=== PATIENT | female | born 1945 | race Caucasian/White ===

== ENCOUNTER 2025-01-24 08:43 | Emergency (ER) | payer MEDICARE, OTHER ==
[~2025-01-24] VITALS: Ht 157.5 cm; Wt 76.5 kg
[2025-01-24 09:43] LABS: HEMATOCRIT 37.6 % (34.1-44.9); HEMOGLOBIN 13.4 g/dL (11.2-15.7); MCH 33.3 PG (25.6-32.2); MCHC 35.6 g/dL (32.2-35.5); MCV 93.3 fL (79.4-94.8); PLATELET COUNT 201 K/uL (182-369); RBC 4.03 M/uL (3.93-5.22)
[2025-01-24] MEDS ORDERED: SODIUM CHLORIDE 0.9% 500 ML IV ONE (09:45)
[2025-01-24 09:57] LABS: ALBUMIN 2.8 g/dL (3.4-5.0); ALBUMIN/GLOBULIN RATIO 0.7 (1.1-2.4); ANION GAP 12.1 (7-21); BILIRUBIN, TOTAL 0.5 mg/dL (0.2-1.0); BUN/CREATININE RATIO 10.52 (6.0-28.6); CALCIUM 8.9 mg/dL (8.5-10.1); CREATININE, SERUM 0.76 mg/dL (0.55-1.02); MAGNESIUM 1.8 mg/dL (1.8-2.4); POTASSIUM 3.1 mmol/L (3.5-5.1); PROTEIN, TOTAL 6.8 g/dL (6.4-8.2)
[2025-01-24] MEDS ORDERED: SODIUM CHLORIDE 0.9% 1,000 ML IV PRN (10:00)
[2025-01-24 10:12] LABS: BANDS, MANUAL DIFF 33; BASOPHILS, MANUAL DIFF 1; LYMPHOCYTES, MANUAL DIFF 25; MONOCYTES, MANUAL DIFF 17; NEUTROPHILS, MANUAL DIFF 24
[2025-01-24 10:14] LABS: EOSINOPHILS, MANUAL DIFF 0
[2025-01-24] MEDS ORDERED: AZITHROMYCIN500 MG PO (10:47)
[2025-01-24 11:03] VITALS: BP 111/63
== END 2025-01-24 11:03 | disposition home or self-care (01) ==
LOC: ED 08:43
PROVIDERS: Emergency Medicine
DX: R19.7 Diarrhea, unspecified (principal)
CPT/HCPCS: 36415; 80053; 83735; 85025; 99284; J7030